=== PATIENT | female | born 1965 | race Two or more races ===

== ENCOUNTER 2022-07-05 09:18 | Emergency (ER) | payer OTHER ==
[~2022-07-05] VITALS: Ht 157.5 cm; Wt 70.7 kg
[2022-07-05 10:16] VITALS: BP 134/57
[2022-07-05 10:19] LABS: Urine Bacteria FEW /hpf (None Seen); Urine Blood Negative /uL (Negative); Urine Specific Gravity 1.004 (1.001-1.035); Urine WBC 1 /hpf (0 - 5)
[2022-07-05] MEDS ORDERED: BACDST PO (11:24)
[2022-07-05] MEDS ORDERED: PHEN200T16 PO (11:24)
== END 2022-07-05 11:31 | disposition home or self-care (01) ==
LOC: ER 09:18
DX: N39.0 Urinary tract infection, site not specified (principal)
CPT/HCPCS: 74176; 81001